=== PATIENT | male | born 1985 | race Caucasian/White ===

== ENCOUNTER 2017-07-06 23:58 | Emergency (ER) | payer OTHER ==
[~2017-07-06 23:58] MED LIST: DEXT20CA7 PO; HYDR-971 PO; ONDA4TAB10 SL; SUMA4PEN SQ
--- NOTE | 2017-07-07 00:15 | PHYS DOC ---
Past History Past Medical History: DVT Alcohol Use: None Drug Use: None Adult General Chief Complaint Chief Complaint: SHORTNESS OF BREATH HPI HPI Patient is a 31-year-old male who presents with complaints of difficulty breathing, shortness of air. Patient does state that he was not having chest pain but he was having some discomfort with breathing. Patient denies being exposed to any noxious chemical also having any allergies. At the time of the ED examination the patient is denying any pain. Patient denies any recent illness, trauma, extremity pain or swelling. Review of Systems Review of Systems Constitutional: Denies fever or chills [] HENT: Denies pain Respiratory: As per history of present illness Cardiovascular: No chest pain, no swelling GI: Denies abdominal pain, nausea, vomiting, Musculoskeletal: Denies back pain or joint pain or extremity pain Integument: Denies rash or skin lesions [] Neurologic: Denies headache, focal weakness or sensory changes [] All other systems were reviewed and found to be within normal limits, except as documented in this note. Allergies Allergies Allergies Uncoded Allergies Type Severity Reaction Last Updated Verified PENICILLIN Allergy Unknown 07/07/17 Physical Exam Physical Exam Constitutional: Well developed, well nourished, no acute distress, non-toxic appearance. [] HENT: Normocephalic, atraumatic Eyes: EOMI, conjunctiva normal, no discharge. [] Neck: Normal range of motion, trachea midline, no stridor. [] Cardiovascular:Heart rate regular rhythm, no murmur, equal pulses, normal perfusion. Heart rate 76 at the time of the examination Lungs & Thorax: Bilateral breath sounds clear to auscultation, no tachypnea, no rales, no rhonchi, no wheezing Abdomen: Bowel sounds normal, soft, no tenderness, no masses, no pulsatile masses. [] Skin: Warm, dry, no erythema, no rash. [] Back: Normal range of motion Extremities: No tenderness, no DVT, ROM intact, no edema. [] Neurologic: Alert and oriented X 3, normal motor function,, no focal deficits noted. [] Psychologic: Affect normal, judgement normal, mood normal. [] Gen.: At the time of the ED evaluation the vital signs are unremarkable with the exception of systolic blood pressure 153 Current Patient Data Vital Signs Vital Signs Date Time Temp Pulse Resp B/P (MAP) Pulse Ox O2 Delivery O2 Flow Rate FiO2 2/1/18 00:07 98.4 66 20 100 Room Air EKG EKG 0010 62, sinus rhythm, no STEMI[] Radiology/Procedures Radiology/Procedures Preliminary chest x-ray read nothing acute[] Course & Med Decision Making Course & Med Decision Making Pertinent Labs and Imaging studies reviewed. (See chart for details) 0052 patient in no distress, unremarkable vital signs, no tachypnea, no tachycardia. 0103 vital signs unremarkable, heart rate 67, O2 sats on room air 98%, no tachypnea. I offered the patient admission observation time and repeat troponin and EKG in 2 hours but patient opts FOR discharge home. He states he will follow -up with his PCP later today. [] Dragon Disclaimer Dragon Disclaimer This electronic medical record was generated, in whole or in part, using a voice recognition dictation system. Departure Departure: Impression: Primary Impression: Dyspnea Additional Impression: Anxiety Disposition: 01 HOME, SELF-CARE Condition: STABLE Referrals: MILO JIMENEZ DO (PCP) Please follow with your PCP today for recheck and reevaluation. Please discussed this emergency department visit with him Patient Instructions: Anxiety and Panic Attacks, Shortness of Breath Problem Qualifiers Sergio HOUSTON MD Jul 07, 2017 00:15
[2017-07-07 00:25] LABS: BASO # 0.1 x10^3/uL (0.0-0.2); BASO % 1 % (0-3); EOS # 0.4 x10^3/uL (0.0-0.7); EOS % 7 % (0-3); HEMATOCRIT 41.7 % (39.0-53.0); HEMOGLOBIN 14.1 g/dL (13.0-17.5); LYMPH # 2.4 x10^3/uL (1.0-4.8); LYMPH % 37 % (24-48); MEAN CORPUSCULAR HEMOGLOBIN 31 pg (25-35); MEAN CORPUSCULAR HGB CONC 34 g/dL (31-37); MEAN CORPUSCULAR VOLUME 91 fL (79-100); MONO # 0.6 x10^3/uL (0.0-1.1); MONO % 8 % (0-9); NEUT # 3.1 x10^3uL (1.8-7.7); NEUT % 47 % (31-73); PLATELET COUNT 195 x10^3/uL (140-400); RED BLOOD COUNT 4.56 x10^6/uL (4.30-5.70); RED CELL DISTRIBUTION WIDTH 13.1 % (11.5-14.5); WHITE BLOOD COUNT 6.7 x10^3/uL (4.0-11.0)
[2017-07-07 00:32] LABS: CALCIUM 8.5 mg/dL (8.5-10.1); GFR 87.2; POTASSIUM 3.6 mmol/L (3.5-5.1)
[2017-07-07 00:35] VITALS: BP 112/76
--- NOTE | 2017-07-07 06:11 | EKG ---
[address] [address] Test Date: 2017-07-07 Test Time: 00:09:44 Pat Name: JANETTE RENNERBetteBianca Department: Room: Gender: M Ditch Tender: TREASURE : 1985 Requested By: Sergio HOUSTON Order Number: [id number] Reading MD: Measurements Intervals [place] Rate: 62 P: 0 OR: 216 QRS: 94 QRSD: 102 T: 27 QT: 362 QTc: 369 Interpretive Statements SINUS RHYTHM RIGHTWARD AXIS QRS(T) CONTOUR ABNORMALITY CONSIDER INFERIOR MYOCARDIAL DAMAGE POSSIBLY ABNORMAL ECG RI6.01 No previous ECG available for comparison
--- NOTE | 2017-07-07 07:15 | RAD ---
Exam: PA and lateral chest radiograph History: Dyspnea. Comparison: None. Findings: Cardiomediastinal silhouette is within normal limits for size. Bilateral lung fish are free of focal infiltrate. No pleural effusion is seen. Impression: No acute cardiopulmonary process.
== END 2017-07-07 01:12 | disposition home or self-care (01) ==
LOC: ER 23:58 → MERGE 23:58 → ER 07-07 01:12
DX: F41.9 Anxiety disorder, unspecified (principal); Z86.718 Personal history of other venous thrombosis and embolism; Z88.0 Allergy status to penicillin
CPT/HCPCS: 36415; 71046; 80048; 84484; 85025; 93005; 99285-25

== ENCOUNTER → 2017-07-07 | Outpatient (CLI) | payer OTHER ==
[2015-07-08 16:12] VITALS: BP 124/63
[2017-07-08 03:20] LABS: HEMOGLOBIN A1C 5.1 % (4.8-5.6)
[2017-07-08 03:20] LABS: THYROXINE 5.3 ug/dL (4.5-12.0)
== END | disposition home or self-care (01) ==
LOC: PMG 11:43
PROVIDERS: ATTEND General Practice
DX: R06.02 Shortness of breath (principal); R53.83 Other fatigue; R20.2 Paresthesia of skin; R79.89 Other specified abnormal findings of blood chemistry; Z87.891 Personal history of nicotine dependence
CPT/HCPCS: 36415; 83036; 84436; 84443; 84480; 85379